=== PATIENT | male | born 1950 | race Caucasian/White ===

== ENCOUNTER → 2017-11-27 08:54 | Outpatient (CLI) | payer MEDICARE, OTHER, SELFPAY ==
[2017-11-27 10:56] LABS: Anion Gap 7 (5-15); BUN 14 mg/dL (7-18); BUN/Creat Ratio 11.8 RATIO (10-20); Calcium,Total 8.8 mg/dL (8.5-10.1); Chloride 106 mmol/L (98-107); Cholesterol 174 mg/dL (200); Creatinine, Serum 1.19 mg/dL (0.70-1.30); EST Glomerular Filtration Rate 65 mL/min (>60); Est Glom Filt Rate - Afr Amer 78 mL/min (>60); Glucose 99 mg/dL (74-106); High Density Lipoprotein 58 mg/dL; Potassium 4.5 mmol/L (3.5-5.1); Sodium Level 143 mmol/L (136-145); Triglycerides 159 mg/dL; Very Low Density Lipoprotein 32 mg/dL (5-40)
[2017-11-28 08:35] LABS: Vitamin D,25 Hydroxy 46.8 ng/mL (29.95-100.01)
== END ==
PROVIDERS: Family Provider Family Medicine; PCP Family Medicine; Visit Provider Family Medicine
DX: E78.5 Hyperlipidemia, unspecified (principal); R53.83 Other fatigue; E55.9 Vitamin D deficiency, unspecified
CPT/HCPCS: 36415; 80048; 80061; 82306

== ENCOUNTER → 2018-12-12 09:01 | Outpatient (CLI) | payer MEDICARE, OTHER, SELFPAY ==
[2018-12-12 11:06] LABS: ALB/GLOB Ratio 1.1 RATIO (0.9-2.4); AST(SGOT) 34 U/L (15-37); Alanine Aminotransfer ALT/SGPT 53 U/L (16-61); Albumin, Serum 3.6 g/dL (3.2-5.0); Alkaline Phosphatase 59 U/L (45-117); Anion Gap 6 (5-15); BUN 16 mg/dL (7-18); BUN/Creat Ratio 14.3 RATIO (10-20); Calcium,Total 8.6 mg/dL (8.5-10.1); Chloride 108 mmol/L (98-107); Cholesterol 162 mg/dL (200); Creatinine, Serum 1.12 mg/dL (0.70-1.30); EST Glomerular Filtration Rate 69 mL/min (>60); Est Glom Filt Rate - Afr Amer 84 mL/min (>60); Globulin 3.3 g/dL (2.2-4.2); Glucose 99 mg/dL (74-106); High Density Lipoprotein 57 mg/dL; PSA,Total - Annual Screen 0.82 ng/mL (0.00-4.00); Potassium 4.1 mmol/L (3.5-5.1); Protein, Total 6.9 g/dL (6.4-8.2); Sodium Level 142 mmol/L (136-145); Triglycerides 110 mg/dL; Very Low Density Lipoprotein 22 mg/dL (5-40)
== END ==
PROVIDERS: Family Provider Family Medicine; PCP Family Medicine; Referring Provider Family Medicine; Visit Provider Family Medicine
DX: E78.5 Hyperlipidemia, unspecified (principal); R53.83 Other fatigue; E55.9 Vitamin D deficiency, unspecified; Z12.5 Encounter for screening for malignant neoplasm of prostate
CPT/HCPCS: 36415; 80053; 80061; 82306; 84153; G0103

== ENCOUNTER → 2020-05-26 12:21 | Outpatient (CLI) | payer MEDICARE, OTHER, SELFPAY ==
[2020-05-26 15:38] LABS: Vitamin D,25 Hydroxy 81.3 ng/mL
[2020-05-26 15:39] LABS: Anion Gap 6 (5-15); BUN 12 mg/dL (7-18); BUN/Creat Ratio 9.6 RATIO (10-20); Calcium,Total 8.7 mg/dL (8.5-10.1); Chloride 106 mmol/L (98-107); Cholesterol 173 mg/dL (200); Creatinine, Serum 1.25 mg/dL (0.70-1.30); EST Glomerular Filtration Rate 61 mL/min (>60); Est Glom Filt Rate - Afr Amer 74 mL/min (>60); Glucose 94 mg/dL (74-106); High Density Lipoprotein 63 mg/dL; PSA,Total - Annual Screen 0.54 ng/mL (0.00-4.00); Potassium 3.8 mmol/L (3.5-5.1); Sodium Level 140 mmol/L (136-145); Triglycerides 114 mg/dL; Very Low Density Lipoprotein 23 mg/dL (5-40)
== END ==
PROVIDERS: PCP Family Medicine; Referring Provider Family Medicine; Visit Provider Family Medicine
DX: E55.9 Vitamin D deficiency, unspecified (principal); E78.5 Hyperlipidemia, unspecified; Z12.5 Encounter for screening for malignant neoplasm of prostate; Z13.1 Encounter for screening for diabetes mellitus
CPT/HCPCS: 36415; 80048; 80061; 82306; 84153; G0103

== ENCOUNTER 2020-07-06 13:12 | Outpatient (RCR) | payer MEDICARE, OTHER, SELFPAY ==
[2020-07-06] MEDS: COVID-19 VACC, MRNA(PFIZER)/PF 30 MCG/0.3 ML SYRINGE IM (12:09)
[2020-07-27] MEDS: COVID-19 VACC, MRNA(PFIZER)/PF 30 MCG/0.3 ML SYRINGE IM (11:49)
== END 2020-10-05 23:59 ==
LOC: IMMUN 13:12
PROVIDERS: PCP Family Medicine; Visit Provider Family Medicine
DX: Z23 Encounter for immunization (principal)
CPT/HCPCS: 0001A; 0002A; 91300

== ENCOUNTER 2021-05-10 16:46 | Outpatient (CLI) | payer MEDICARE, OTHER, SELFPAY ==
--- NOTE | 2021-05-10 16:51 | RAD_ITS ---
STUDY: X-RAY - ACUTE ABDOMINAL SERIES REASON FOR EXAM: Male, 70 years old. Pain. Right upper quadrant pain. TECHNIQUE: Single view of the chest. Supine, and erect view(s) of the abdomen were obtained. COMPARISON: CT of the abdomen and pelvis, 05/31/2016. Chest, 01/16/2014 FINDINGS: The lungs are clear and expanded. Normal size heart. Normal mediastinum and olegario. Normal visualized pulmonary arteries. Normal visualized aortic arch and descending thoracic aorta. There is a non-specific bowel gas pattern. No free air. The soft tissue structures of the abdomen and pelvis are unremarkable. Degenerative changes of the thoracolumbar spine. There is a healed fracture of the right clavicle. RAD/Acute Abdomen Inc Chest IMPRESSION: 1. No acute cardiopulmonary disease. 2. No acute intra-abdominal process. Electronically Signed: Quentin Chang DO at 21:18 EST Tel [phone], Service support ,
[2021-05-10 18:10] LABS: Absolute Neutrophil Count 2.4 X10^3/uL (2.0-7.7); Basophil# 0.03 X10^3/uL; Basophil% 0.7 % (0-1); Eosinophil# 0.12 X10^3/uL; Eosinophils% 2.7 % (0-5); Hematocrit 42.2 % (40-54); Hemoglobin 14.1 g/dL (13.0-16.5); Lymphocyte % 33.7 % (19-41); Mean Corp Hgb Conc 33.4 g/dL (32-36); Mean Corpuscular Hgb 31.5 pg (27.0-32.0); Mean Corpuscular Volume 94.2 fL (80-94); Mean Platelet Vol. 10.6 fl (6.2-12.0); Monocyte# 0.35 X10^3/uL; Monocyte% 7.9 % (0-10); NRBC Flagged by Analyzer 0 % (0-5); Neutrophil # 2.44 X10^3/uL (2.7-7.7); Neutrophil % 54.8 % (47-70); Platelet Count 159 K/mm3 (150-450); RBC Distribution Width CV 12.8 % (11.6-14.6); RBC Distribution Width SD 43.8 fl (35.1-43.9); Red Blood Count 4.48 M/mm3 (4.6-6.2); White Blood Count 4.5 K/mm3 (4.4-11.0)
[2021-05-10 18:12] LABS: ALB/GLOB Ratio 1.2 RATIO (0.9-2.4); AST(SGOT) 28 U/L (15-37); Alanine Aminotransfer ALT/SGPT 53 U/L (16-61); Albumin, Serum 3.8 g/dL (3.2-5.0); Alkaline Phosphatase 72 U/L (45-117); Anion Gap 7 (5-15); BUN 19 mg/dL (7-18); BUN/Creat Ratio 15.4 RATIO (10-20); Chloride 103 mmol/L (98-107); Creatinine, Serum 1.23 mg/dL (0.70-1.30); EST Glomerular Filtration Rate 62 mL/min (>60); Est Glom Filt Rate - Afr Amer 75 mL/min (>60); Globulin 3.3 g/dL (2.2-4.2); Glucose 105 mg/dL (74-106); Potassium 3.9 mmol/L (3.5-5.1); Protein, Total 7.1 g/dL (6.4-8.2); Sodium Level 140 mmol/L (136-145)
[2021-05-10 18:35] LABS: Erythrocyte Sedimentation Rate 5 mm/hr (0-20)
== END 2021-05-10 23:59 | disposition short-term general hospital (02) ==
PROVIDERS: PCP Family Medicine; Referring Provider Family Medicine; Visit Provider Family Medicine
DX: R10.9 Unspecified abdominal pain (principal)
CPT/HCPCS: 36415; 74022; 80053; 85025; 85652

== ENCOUNTER 2021-06-28 11:07 | Outpatient (CLI) | payer MEDICARE, OTHER, SELFPAY ==
[2021-06-28 12:59] LABS: Vitamin B12 451 pg/mL (211-911); Vitamin D,25 Hydroxy 84.4 ng/mL
[2021-06-28 13:07] LABS: Cholesterol 158 mg/dL (200); High Density Lipoprotein 64 mg/dL; Thyroid Stim Hormone (TSH) 1.61 uIU/mL (0.358-3.74); Triglycerides 126 mg/dL; Very Low Density Lipoprotein 25 mg/dL (5-40)
== END 2021-06-28 23:59 | disposition home or self-care (01) ==
LOC: MTLAB 11:11
PROVIDERS: PCP Family Medicine; Referring Provider Family Medicine; Visit Provider Family Medicine
DX: E78.5 Hyperlipidemia, unspecified (principal); E55.9 Vitamin D deficiency, unspecified; R53.83 Other fatigue; Z12.5 Encounter for screening for malignant neoplasm of prostate
CPT/HCPCS: 36415; 80061; 82306; 82607; 84153; 84443; G0103

== ENCOUNTER → 2022-07-04 | Outpatient (CLI) | payer MEDICARE, OTHER, SELFPAY ==
[2022-07-04 13:03] LABS: Vitamin D,25 Hydroxy 80.8 ng/mL
[2022-07-04 13:06] LABS: ALB/GLOB Ratio 1.2 RATIO (0.9-2.4); AST(SGOT) 30 U/L (15-37); Alanine Aminotransfer ALT/SGPT 49 U/L (16-61); Albumin, Serum 3.8 g/dL (3.2-5.0); Alkaline Phosphatase 58 U/L (45-117); Anion Gap 6 (5-15); BUN 12 mg/dL (7-18); BUN/Creat Ratio 9.7 RATIO (10-20); Calcium,Total 9.2 mg/dL (8.5-10.1); Chloride 106 mmol/L (98-107); Cholesterol 187 mg/dL (200); Creatinine, Serum 1.24 mg/dL (0.70-1.30); EST Glomerular Filtration Rate 61 mL/min (>60); Est Glom Filt Rate - Afr Amer 74 mL/min (>60); Globulin 3.3 g/dL (2.2-4.2); Glucose 106 mg/dL (74-106); High Density Lipoprotein 62 mg/dL; PSA,Total - Annual Screen 0.79 ng/mL (0.00-4.00); Potassium 4.5 mmol/L (3.5-5.1); Protein, Total 7.1 g/dL (6.4-8.2); Sodium Level 140 mmol/L (136-145); Triglycerides 115 mg/dL; Very Low Density Lipoprotein 23 mg/dL (5-40)
== END | disposition home or self-care (01) ==
LOC: MFPLAB 10:22
PROVIDERS: PCP Family Medicine; Referring Provider Family Medicine; Visit Provider Family Medicine
DX: E78.5 Hyperlipidemia, unspecified (principal); E55.9 Vitamin D deficiency, unspecified; Z12.5 Encounter for screening for malignant neoplasm of prostate
CPT/HCPCS: 36415; 80053; 80061; 82306; 84153; G0103

== ENCOUNTER → 2023-04-03 | Outpatient (CLI) | payer MEDICARE, OTHER, SELFPAY ==
[2023-04-03 10:31] LABS: Erythrocyte Sedimentation Rate 4 mm/hr (0-20)
[2023-04-03 10:34] LABS: Basophil# 0.04 X10^3/uL; Basophil% 1.1 % (0-1); Eosinophil# 0.16 X10^3/uL; Eosinophils% 4.3 % (0-5); Hematocrit 42.3 % (40-54); Lymphocyte % 31.9 % (19-41); Mean Corp Hgb Conc 33.1 g/dL (32-36); Mean Corpuscular Hgb 31.5 pg (27.0-32.0); Mean Corpuscular Volume 95.1 fL (80-94); Mean Platelet Vol. 11.1 fl (6.2-12.0); Monocyte# 0.32 X10^3/uL; Monocyte% 8.5 % (0-10); NRBC Flagged by Analyzer 0 % (0-5); Neutrophil # 2.03 X10^3/uL (2.7-7.7); Neutrophil % 53.9 % (47-70); Platelet Count 141 K/mm3 (150-450); RBC Distribution Width CV 13.1 % (11.6-14.6); RBC Distribution Width SD 45.1 fl (35.1-43.9); Red Blood Count 4.45 M/mm3 (4.6-6.2); White Blood Count 3.8 K/mm3 (4.4-11.0)
[2023-04-03 11:08] LABS: Vitamin B12 404 pg/mL (211-911); Vitamin D,25 Hydroxy 87.7 ng/mL
[2023-04-03 11:18] LABS: ALB/GLOB Ratio 1.1 RATIO (0.9-2.4); AST(SGOT) 21 U/L (15-37); Alanine Aminotransfer ALT/SGPT 44 U/L (16-61); Albumin, Serum 3.7 g/dL (3.2-5.0); Alkaline Phosphatase 66 U/L (45-117); Anion Gap 3 (5-15); BUN 18 mg/dL (7-18); BUN/Creat Ratio 16.2 RATIO (10-20); Calcium,Total 8.5 mg/dL (8.5-10.1); Chloride 107 mmol/L (98-107); Creatinine, Serum 1.11 mg/dL (0.70-1.30); EST Glomerular Filtration Rate 69 mL/min (>60); Est Glom Filt Rate - Afr Amer 84 mL/min (>60); Ferritin 68 ng/mL (26-388); Globulin 3.3 g/dL (2.2-4.2); Glucose 108 mg/dL (74-106); Iron 79 ug/dL (65-175); Potassium 4.1 mmol/L (3.5-5.1); Sodium Level 139 mmol/L (136-145); Thyroid Stim Hormone (TSH) 1.63 uIU/mL (0.358-3.74)
== END | disposition home or self-care (01) ==
LOC: MFPLAB 08:58
PROVIDERS: PCP Family Medicine; Visit Provider Family Medicine
DX: G47.50 Parasomnia, unspecified (principal); E78.5 Hyperlipidemia, unspecified; E55.9 Vitamin D deficiency, unspecified
CPT/HCPCS: 36415; 80053; 82306; 82607; 82728; 83540; 84443; 85025; 85652

== ENCOUNTER → 2024-01-31 | Outpatient (CLI) | payer MEDICARE, OTHER, SELFPAY ==
[2024-01-31 13:12] LABS: AST(SGOT) 25 U/L (15-37); Alanine Aminotransfer ALT/SGPT 31 U/L (16-61); Albumin, Serum 3.7 g/dL (3.2-5.0); Alkaline Phosphatase 79 U/L (45-117); Anion Gap 5 (5-15); BUN 15 mg/dL (7-18); BUN/Creat Ratio 12.8 RATIO (10-20); Calcium,Total 9.6 mg/dL (8.5-10.1); Chloride 107 mmol/L (98-107); Cholesterol 165 mg/dL (200); Creatinine, Serum 1.17 mg/dL (0.70-1.30); EST Glomerular Filtration Rate 65 mL/min (>60); Est Glom Filt Rate - Afr Amer 79 mL/min (>60); Globulin 3.6 g/dL (2.2-4.2); Glucose 112 mg/dL (74-106); High Density Lipoprotein 63 mg/dL; PSA,Total - Annual Screen 0.81 ng/mL (0.00-4.00); Protein, Total 7.3 g/dL (6.4-8.2); Sodium Level 140 mmol/L (136-145); Triglycerides 94 mg/dL; Very Low Density Lipoprotein 19 mg/dL (5-40)
== END | disposition home or self-care (01) ==
LOC: MFPLAB 11:02
PROVIDERS: PCP Family Medicine; Referring Provider Family Medicine; Visit Provider Family Medicine
DX: E78.5 Hyperlipidemia, unspecified (principal); E55.9 Vitamin D deficiency, unspecified; Z12.5 Encounter for screening for malignant neoplasm of prostate
CPT/HCPCS: 36415; 80053; 80061; 82306; 84153; G0103

== ENCOUNTER → 2024-09-02 | Outpatient (CLI) | payer MEDICARE, OTHER, SELFPAY ==
[2024-09-02 15:51] LABS: Absolute Neutrophil Count 1.9 X10^3/uL (2.0-7.7); Basophil# 0.01 X10^3/uL; Basophil% 0.4 % (0-1); Eosinophil# 0.02 X10^3/uL; Eosinophils% 0.8 % (0-5); Hematocrit 41.2 % (40-54); Hemoglobin 14.1 g/dL (13.0-16.5); Lymphocyte % 15.3 % (19-41); Mean Corp Hgb Conc 34.2 g/dL (32-36); Mean Corpuscular Hgb 31.5 pg (27.0-32.0); Mean Corpuscular Volume 92.2 fL (80-94); Mean Platelet Vol. 10.7 fl (6.2-12.0); Monocyte# 0.23 X10^3/uL; Monocyte% 8.8 % (0-10); NRBC Flagged by Analyzer 0 % (0-5); Neutrophil # 1.94 X10^3/uL (2.7-7.7); Neutrophil % 74.3 % (47-70); POSITIVE DIFFERENTIAL YES; Platelet Count 101 K/mm3 (150-450); RBC Distribution Width CV 13.2 % (11.6-14.6); RBC Distribution Width SD 44.8 fl (35.1-43.9); Red Blood Count 4.47 M/mm3 (4.6-6.2); White Blood Count 2.6 K/mm3 (4.4-11.0)
[2024-09-02 15:55] LABS: ALB/GLOB Ratio 1.3 RATIO (0.9-2.4); AST(SGOT) 102 U/L (<=37); Alanine Aminotransfer ALT/SGPT 108 U/L (<=46); Albumin, Serum 3.9 g/dL (3.4-4.8); Alkaline Phosphatase 142 U/L (40-129); Anion Gap 13 (5-15); BUN 15 mg/dL (4-19); BUN/Creat Ratio 10.2 RATIO (10-20); Calcium,Total 9.3 mg/dL (7.6-11.0); Carbon Dioxide 23.5 mmol/L (21.0-32.0); Chloride 98 mmol/L (98-108); Creatinine, Serum 1.46 mg/dL (0.70-1.20); EST Glomerular Filtration Rate 50 (>60); Globulin 3.1 g/dL (2.2-4.2); Glucose 108 mg/dL (70-99); Potassium 4.2 mmol/L (3.3-5.1); Sodium Level 134 mmol/L (133-145); Total Bilirubin 0.98 mg/dL (0.00-1.30)
[2024-09-02 16:02] LABS: Differential Indicated SCAN CRITERIA MET
[2024-09-02 17:50] LABS: Erythrocyte Sedimentation Rate 8 mm/hr (0-20)
[2024-09-04 05:07] LABS: GGTP 84 IU/L (0-65)
== END | disposition home or self-care (01) ==
LOC: MFPLAB 12:19
PROVIDERS: PCP Family Medicine; Referring Provider Family Medicine; Visit Provider Family Medicine
DX: R05.9 Cough, unspecified (principal); R10.9 Unspecified abdominal pain
CPT/HCPCS: 36415; 80053; 82977; 85025; 85652; 87086; 87088

== ENCOUNTER → 2024-09-04 | Outpatient (CLI) | payer MEDICARE, OTHER, SELFPAY ==
--- NOTE | 2024-09-04 07:13 | US_ITS ---
PROCEDURE: ABDOMEN LIMITED 09/04/2024 REASON FOR EXAM: ELEVATED LFT COMPARISON: None. FINDINGS: Liver: Within normal limits. Gallbladder: Surgically absent. Common bile duct: 7 mm . Pancreas: Visualized portions appear within normal limits. The pancreatic tail is obscured by bowel gas. Other: The right kidney is without evidence of stones or hydronephrosis. The right kidney measures up to 10.6 cm in length. US/Abdomen Limited IMPRESSION: Status post cholecystectomy. Liver appears unremarkable. Reading Location: [facility]
== END | disposition home or self-care (01) ==
LOC: US 07:10
PROVIDERS: PCP Family Medicine; Referring Provider Family Medicine; Visit Provider Family Medicine
DX: R94.5 Abnormal results of liver function studies (principal); R10.9 Unspecified abdominal pain
CPT/HCPCS: 76705

== ENCOUNTER 2024-09-06 21:43 | Emergency (ER) | payer MEDICARE, OTHER, SELFPAY ==
[2024-09-06 21:44] VITALS: BP 131/79; PULSE 87; RESP 18; TEMP 37.3; O2SAT 98; BMI 25.0
--- NOTE | 2024-09-06 22:32 | EDS_ITS ---
HPI History of Present Illness Chief Complaint: General Illness Informant: patient Narrative Narrative: Patient 73-year-old male presenting with 9 days of intermittent fevers, night sweats, chills, rigors, swollen glands, sore throat, fatigue and, decreased appetite and rash. He saw his primary care doctor on Sunday, 4 days ago and had blood work. He had an ultrasound of his abdomen for elevated LFTs. This was normal. He continues have symptoms and came in for evaluation. He is having a worsening rash now. He states it started as a rash on his neck and upper chest that he thought initially maybe he got sunburn from working outside. It has since enlarged and he is now having other rashes popping up on his abdomen, arms or legs. He denies any nausea, vomiting or diarrhea. Denies any black or blood in his stool. States he has a mild headache but has not thought too much of it. Took 2 aspirin today. Denies any medication changes. Denies any supplements or soaps. Denies any sick contacts. Denies any URI symptoms besides sore throat and a swollen lymph node on the right of his neck when this first started. Denies any known tick bites but notes he does spend a lot of time outside. States he has some chronic abdominal pain for years with no significant change in this. Denies any significant cough. No chest pain or shortness of breath reported. No leg swelling reported. Never had any like this before. No other complaints or concerns at this time. [facility] Medical History Depression FH: cholecystectomy High cholesterol Medical History no medical history Home Medications ?Medication ?Instructions ?Recorded ?Last Taken ?Type atorvastatin 20 mg tablet 20 mg PO DAILY 09/06/24 Unkn own History bupropion HCl 150 mg 24 hr tablet, 150 mg PO DAILY 02/21 Unknown History extended release escitalopram oxalate 20 mg tablet 20 mg PO DAILY 09/06 Unknown History fluorometholone 0.1 % eye 1 drp ophthalmic (eye) BID 0 09/06/24 Unknown History drops,suspension cefuroxime axetil 500 mg tablet 500 mg PO BID 14 days #28 tabs 09/07/24 Unknown Rx famotidine 20 mg tablet (Pepcid) 20 mg PO BID #30 tabs 09/07/24 Unknown Rx metronidazole 500 mg tablet 500 mg PO Q8H 7 days #21 t abs 09/07/24 Unknown Rx Allergy/AdvReac Type Severity Reaction Status Date / Time scallops Allergy Angioedema Verified 09/06/24 21:46 Surgical History no surgical history Social History Smoking Status: Never smoker ROS ROS ED Constitutional Constitutional ED: Reports chills, fever(s), sweats and other Details: Anorexia Eyes Eyes: Denies change in vision ENT ENT ED: Reports sore throat; Denies ear pain or rhinorrhea Cardiovascular Cardiovascular: Denies chest pain or palpitations Respiratory/Chest Respiratory/Chest: Denies cough or dyspnea Gastrointestinal Gastrointestinal: Reports abdominal pain; Denies diarrhea, melena, nausea or vomiting Genitourinary Genitourinary ED: Denies dysuria, hematuria or urinary frequency Musculoskeletal Musculoskeletal: Reports arthralgias; Denies back pain, myalgias or neck pain Integumentary Reports rash Neurologic Neurologic: Reports headache(s); Denies paresthesias or weakness Psychiatric Psychiatric: Denies anxiety Endocrine Endocrinology: Reports other Details: Night sweats Hematologic/Lymphatic Hematologic/Lymphatic: Denies easy bleeding or easy bruising EXAM Physical Exam Const Vital Signs: 09/06/24 21:44 09/06/24 22:13 09/06/24 23:43 Temperature 99.1 F 99.2 F H Temperature Source Oral Oral Pulse Rate 87 77 Respiratory Rate 18 16 Respiratory Pattern Normal Blood Pressure 131/79 H 120/76 Blood Pressure Mean 96 90 Pulse Ox 98 97 Oxygen Delivery Method Room Air Room Air 09/07/24 00:41 09/07/24 02:11 Temperature 98.4 F Temperature Source Pulse Rate 79 81 Respiratory Rate 16 16 Respiratory Pattern Blood Pressure 122/68 H 114/76 Blood Pressure Mean 86 88 Pulse Ox 97 97 Oxygen Delivery Method Room Air Positive well nourished and well developed General Appearance ED: well developed and NAD; Negative for pallor HEENT Reports moist mucous membranes HEENT Narrative: No lesions noted in the mouth. Moist mucosal membranes. Eyes PERRL and EOMs intact bilaterally Neck supple and no JVD Neck Narrative: Mild tender shotty lymphadenopathy most pronounced of the right anterior superior cervical chain. Normal range of motion of the neck. No meningeal signs. Chest Wall palpation of chest normal Chest Narrative: No chest wall tenderness. Resp normal respiratory effort and clear to auscultation bilaterally Cardio regular rate, regular rhythm and no murmurs GI normal to inspection, nondistended, normoactive bowel sounds and non-tender Auscultation: normoactive bowel sounds Palpation: soft; Negative for tender or guarding Back/Spine no CVA tenderness Extremity normal to inspection General Extremety ED: Negative for edema or tenderness General Extremity: Negative for edema Neuro oriented x3 and no sensory deficits noted Sensorium / Orientation: alert Motor Exam: strength 5/5 throughout; Negative for general weakness Psych mental status grossly normal Skin Skin Narrative: Patient has erythematous rash with relatively well-demarcated borders of the anterior neck as well as the anterior chest wall that also psych an exaggerated outline of the edge of his shirt. He then has large scattered ovoid erythematous rash on his abdomen and scattered but less pronounced on his arms and legs. There is some mild clearing of these lesions with a central area of increased erythema again. Most consistent with erythema migrans. General Skin Exam: Negative for jaundice or pallor MDM MDM MDM Narrative Medical decision making narrative: Patient is evaluated for 9 days of fever, night sweats, chills, decreased appetite and rash. Has also had ongoing abdominal pain and recent labs did show a transaminitis. Symptoms started with a sore throat. Differential is broad including paraneoplastic syndrome, occult infection, bacteremia, UTI, Lyme disease, ascending cholangitis, choledocholithiasis, viral syndrome, dermatitis and autoimmune process. Broad workup including CBC, BMP, liver panel, CRP, ESR, TSH, lipase and urinalysis as well as strep swab, Monospot and Lyme screen (send out) ordered. Edition chest x-ray is obtained. Chest x-ray viewed by myself as well as radiology does not show any acute process. Workup is remarkable for elevation of his CRP at 121 and a mild anemia with a hemoglobin of 12.9 which is down about a gram compared to a week ago. Denies any active bleeding. There is now a left shift but white blood cell count is normal. It is elevated from where it was a week ago (from 2.6-5.8). ESR is normal. Is normal BUN and creatinine with largely normal electrolytes. Patient does have an uptrending transaminitis but is still mild. Bilirubin total is normal. TSH is normal. Urinalysis largely normal. Monospot is negative. Strep swab is negative. Given the abdominal pain with uptrending transaminitis and fever of unknown origin CT of the abdomen pelvis is ordered. This does show findings consistent with probable colitis most prominent in the hepatic flexure. No acute diverticulitis. There is some findings consistent with gastritis. This is not explain the patient's rash however. Patient will be started on metronidazole and cefuroxime which will cover intra-abdominal pathology/colitis as well as Lyme disease. Is given first dose of the emergency room. Will also prescribe a PPI for the gastritis noted on CT. Is given outpatient GI follow-up as well as follow-up with primary care doctor. Given close return precautions. Blood cultures are pending. Discharged home in stable condition. Patient is largely well-appearing and actually afebrile without any intervention at time of disposition. Lab Data Attestation: I reviewed the patient's lab results. Labs: Laboratory Results - last 24 hr 09/06/24 09/06/24 23:16 23:30 WBC 5.8 RBC 4.12 L Hgb 12.9 L Hct 37.6 L MCV 91.3 MCH 31.3 MCHC 34.3 RDW Std Deviation 44.2 H RDW Coeff of Carine 13.1 Plt Count 181 MPV 9.9 Immature Gran % (Auto) 1.200 H Neut % (Auto) 82.0 H Lymph % (Auto) 9.5 L Ocean % (Auto) 5.4 Eos % (Auto) 1.6 Baso % (Auto) 0.3 Absolute Neuts (auto) 4.7 Absolute Lymphs (auto) 0.55 L Nucleated RBC % 0 ESR 11 Sodium 134 Potassium 3.7 Chloride 97 L Carbon Dioxide 24.6 Anion Gap 12 BUN 16 Creatinine 1.17 Estim Creat Clear Calc 54.40 Est GFR (MDRD) Non-Af 66 BUN/Creatinine Ratio 13.3 Glucose 113 H Calcium 9.0 Total Bilirubin 0.73 Direct Bilirubin 0.37 H AST 96 H ALT 132 H Alkaline Phosphatase 264 H C-React Prot Ext Range 121.00 H Total Protein 7.3 Albumin 3.9 Globulin 3.4 Lipase 33 TSH 2.540 Urine Color Yellow Urine Clarity Clear Urine pH 6.0 Ur Specific [place] 1.015 Urine Protein 30 H Urine Glucose (UA) Normal Urine Ketones Negative Urine Occult Blood 50 H Urine Nitrite Negative Urine Bilirubin Negative Urine Urobilinogen 1 H Ur Leukocyte Esterase Negative Urine RBC 0 SEEN Urine WBC 0 SEEN Ur Squamous Epith Cells 0 SEEN Urine Bacteria 1+ Hyaline Casts 0-5 SEEN Urine Mucus 2+ Monoscreen Negative Radiography Diagnostic Testing: Clinical Impression(s) from Imaging Studies Chest X-Ray 09/06/24 23:39 IMPRESSION: NO ACUTE FINDINGS. Reading Location: [facility] Abdomen/Pelvis CT 09/07/24 01:07 IMPRESSION: 1. Prior cholecystectomy. 2. Mild multifocal thickening of the colon, more prominent in the hepatic flexure, probably colitis. 3. Diffuse colonic diverticulosis without associated acute diverticulitis. 4. Diffuse thickening of the stomach, probably gastritis. 5. Mild diffuse spondylosis. Reading Location: [place] [address] Discharge Plan Triage Chief Complaint: General Illness ED Provider: Ronda Sheikh Dx/Rx/DC Orders Clinical Impression: Colitis, Erythema migrans (Lyme disease), Fever Instructions: ED Understanding Colitis, ED Lyme Disease Prescriptions: New metronidazole 500 mg tablet 500 mg PO Q8H 7 Days Qty: 21 0RF cefuroxime axetil 500 mg tablet 500 mg PO BID 14 Days Qty: 28 0RF famotidine [Pepcid] 20 mg tablet 20 mg PO BID Qty: 30 0RF No Action atorvastatin 20 mg tablet 20 mg PO DAILY fluorometholone 0.1 % drops,suspension 1 drp ophthalmic (eye) BID escitalopram oxalate 20 mg tablet 20 mg PO DAILY bupropion HCl 150 mg tablet extended release 24 hr 150 mg PO DAILY Primary Care Provider: Jose Carlos Hong Referrals: Jose Carlos Hong MD [Primary Care Provider] - Friend,DO Rodolfo [Med Staff - Active Staff] - Activity Restrictions/Additional Instructions: The ringlike rash scattered throughout your body is highly concerning for Lyme disease. You been started on antibiotic for this while your titers are pending. In addition your CT did show findings showing for possible colitis as well as some inflammation of the stomach. You been prescribed antibiotics to treat the colitis as well and an antacid. Please follow-up with GI. If you have worsening symptoms, develop worsening pain, blood in your stool or severe fever please return to the emergency room. Otherwise please continue to follow-up outpatient with your primary care doctor. Print Language: Tamazight
[2024-09-06 23:34] LABS: Red Blood Cells-Urine 0 SEEN /hpf (0-5); Squamous Epithelial Cells - UA 0 SEEN /hpf (0-5); White Blood Cells 0 SEEN /hpf (0-5)
--- NOTE | 2024-09-06 23:39 | RAD_ITS ---
PROCEDURE: CHEST PA AND LATERAL 09/06/2024 REASON FOR EXAM: FEVER TECHNIQUE: Frontal and lateral views of the chest. COMPARISON: 05/10/2021 FINDINGS: Hardware: None Heart: The heart size is normal. Mediastinum: The mediastinal contour is unremarkable. Lungs: No focal consolidation. No pneumothorax. No pleural effusion. Mild bibasilar atelectasis Bones: The bones are unremarkable. RAD/Chest PA and Lateral IMPRESSION: NO ACUTE FINDINGS. Reading [facility]
[2024-09-06 23:43] VITALS: BP 120/76; PULSE 77; RESP 16; TEMP 37.3; O2SAT 97
[2024-09-06 23:52] LABS: Color, Urine Yellow (Yellow); Glucose, Dipstick Normal (Normal); Ketone-Dipstick Negative (Negative); Leukocyte Esterase-Dipstick Negative /ul (Negative); Nitrite-Dipstick Negative (Negative); Occult Blood-Urine 50 /ul (Negative); Protein-Dipstick 30 mg/dl (Negative); Specific Gravity, Urine 1.015 (1.002-1.030); Urine Bilirubin Dipstick Negative (Negative); Urine Clarity Clear (Clear); Urine Urobilinogen 1 mg/dl (Normal)
[2024-09-07 00:07] LABS: Absolute Lymphocyte Count 0.55 X10^3/uL (0.83-4.51); Absolute Neutrophil Count 4.7 X10^3/uL (2.0-7.7); Basophil# 0.02 X10^3/uL; Basophil% 0.3 % (0-1); Eosinophil# 0.09 X10^3/uL; Eosinophils% 1.6 % (0-5); Hematocrit 37.6 % (40-54); Hemoglobin 12.9 g/dL (13.0-16.5); Lymphocyte # 0.55 X10^3/ul (0.83-4.51); Lymphocyte % 9.5 % (19-41); Mean Corp Hgb Conc 34.3 g/dL (32-36); Mean Corpuscular Hgb 31.3 pg (27.0-32.0); Mean Corpuscular Volume 91.3 fL (80-94); Mean Platelet Vol. 9.9 fl (6.2-12.0); Monocyte# 0.31 X10^3/uL; Monocyte% 5.4 % (0-10); NRBC Flagged by Analyzer 0 % (0-5); Neutrophil # 4.74 X10^3/uL (2.7-7.7); POSITIVE DIFFERENTIAL YES; Platelet Count 181 K/mm3 (150-450); RBC Distribution Width CV 13.1 % (11.6-14.6); RBC Distribution Width SD 44.2 fl (35.1-43.9); Red Blood Count 4.12 M/mm3 (4.6-6.2); White Blood Count 5.8 K/mm3 (4.4-11.0)
[2024-09-07 00:09] LABS: Erythrocyte Sedimentation Rate 11 mm/hr (0-20)
[2024-09-07 00:14] LABS: AST(SGOT) 96 U/L (<=37); Alanine Aminotransfer ALT/SGPT 132 U/L (<=46); Albumin, Serum 3.9 g/dL (3.4-4.8); Alkaline Phosphatase 264 U/L (40-129); Anion Gap 12 (5-15); BUN 16 mg/dL (4-19); BUN/Creat Ratio 13.3 RATIO (10-20); Bilirubin, Direct 0.37 mg/dL (0.00-0.30); Carbon Dioxide 24.6 mmol/L (21.0-32.0); Chloride 97 mmol/L (98-108); Creatinine, Serum 1.17 mg/dL (0.70-1.20); EST Glomerular Filtration Rate 66 (>60); Globulin 3.4 g/dL (2.2-4.2); Glucose 113 mg/dL (70-99); Lipase 33 U/L (13-75); Potassium 3.7 mmol/L (3.3-5.1); Protein, Total 7.3 g/dL (5.9-8.4); Sodium Level 134 mmol/L (133-145); Total Bilirubin 0.73 mg/dL (0.00-1.30)
[2024-09-07 00:22] LABS: Bacteria 1+ /hpf (None Seen); Hyaline Cast 0-5 SEEN /lpf (0-5); Mucous, Urine 2+ /hpf (<or=2+)
[2024-09-07 00:22] LABS: Internal QC Validated? YES +Cl - CLEAR BKGD; Monotest Negative (Negative); Record Kit Lot#, Mono 13241430
[2024-09-07 00:41] VITALS: BP 122/68; PULSE 79; RESP 16; O2SAT 97
--- NOTE | 2024-09-07 01:07 | CT_ITS ---
PROCEDURE: ABDOMEN/PELVIS W IV CONT ONLY 09/07/2024 REASON FOR EXAM: ABD PAIN, FEVER, TRANSAMINITIS TECHNIQUE: Abdomen and pelvis CT with intravenous contrast. Coronal and Sagittal reconstruction series were provided. PATIENT PREPARATION: Per protocol ORAL CONTRAST TYPE: None. CONTRAST: [id number] VOLUME: 100 mL One or more dose reduction techniques were used (e.g., Automated exposure control, adjustment of the mA and/or kV according to patient size, use of iterative reconstruction technique. RADIATION DOSE SUMMARY: CTDlvol: 11.29 mGy DLP: 582 mGycm COMPARISON: Ultrasound of the abdomen on 09/04/2024. FINDINGS: Prior cholecystectomy. Mild multifocal thickening of the colon, more prominent in the hepatic flexure, probably colitis. Diffuse colonic diverticulosis without associated acute diverticulitis. Diffuse thickening of the stomach, probably gastritis. Mild diffuse spondylosis. The visualized lung bases are unremarkable. Normal liver. Normal extrahepatic biliary system. Normal spleen. Normal pancreas. Normal bilateral adrenal glands. Normal size of the right kidney. There is no right renal mass. There are no right renal calculi. There is no right hydronephrosis. Normal visualized right ureter. Normal size of the left kidney. There is no left renal mass. There are no left renal calculi. There is no left hydronephrosis. Normal visualized left ureter. Normal small intestine. The appendix is visualized and appears normal. There is no demonstrated peritoneal fluid. Normal abdominal aorta. Normal inferior vena cava. Normal retroperitoneum. Normal urinary bladder. There is no pelvic mass lesion or lymphadenopathy. There is no pelvic fluid. Normal abdominal wall. CT/Abdomen/Pelvis W IV Cont ONLY IMPRESSION: 1. Prior cholecystectomy. 2. Mild multifocal thickening of the colon, more prominent in the hepatic flexu re, probably colitis. 3. Diffuse colonic diverticulosis without associated acute diverticulitis. 4. Diffuse thickening of the stomach, probably gastritis. 5. Mild diffuse spondylosis. Reading Location[facility] [address]
[2024-09-07 02:11] VITALS: BP 114/76; PULSE 81; RESP 16; TEMP 36.9; O2SAT 97
[2024-09-07] MEDS: metroNIDAZOLE 500 MG Tablet PO (02:14)
[2024-09-07] MEDS: cefuroxime axetiL 250 MG TABLET 500 MG PO (02:38)
[2024-09-09 13:08] LABS: Lyme IGG CIA Positive (Negative); Lyme IGM CIA Positive (Negative); Lyme Scn Total Ab w/Rflx Positive (Negative)
== END 2024-09-07 02:45 | disposition home or self-care (01) ==
PROVIDERS: Emergency Provider Emergency Medicine; PCP Family Medicine; Visit Provider Emergency Medicine
DX: K52.9 Noninfective gastroenteritis and colitis, unspecified (principal); E78.00 Pure hypercholesterolemia, unspecified; A69.20 Lyme disease, unspecified; Z79.899 Other long term (current) drug therapy
CPT/HCPCS: 71046; 74177; 80048; 80076; 81001; 83690; 84443; 85025; 85652; 86140; 86308; 86618; 87040; 87651; 99284; Q9967; A4216

== ENCOUNTER → 2024-09-08 | Outpatient (CLI) | payer MEDICARE, OTHER, SELFPAY ==
[2024-09-08 18:05] LABS: Absolute Lymphocyte Count 0.81 X10^3/uL (0.83-4.51); Absolute Neutrophil Count 2.8 X10^3/uL (2.0-7.7); Basophil# 0.02 X10^3/uL; Basophil% 0.5 % (0-1); Eosinophil# 0.14 X10^3/uL; Eosinophils% 3.5 % (0-5); Hematocrit 35.5 % (40-54); Hemoglobin 11.7 g/dL (13.0-16.5); Lymphocyte # 0.81 X10^3/ul (0.83-4.51); Mean Corpuscular Hgb 30.7 pg (27.0-32.0); Mean Corpuscular Volume 93.2 fL (80-94); Mean Platelet Vol. 10.2 fl (6.2-12.0); Monocyte# 0.22 X10^3/uL; Monocyte% 5.4 % (0-10); NRBC Flagged by Analyzer 0 % (0-5); Neutrophil # 2.82 X10^3/uL (2.7-7.7); Neutrophil % 69.9 % (47-70); Platelet Count 205 K/mm3 (150-450); RBC Distribution Width CV 13.4 % (11.6-14.6); RBC Distribution Width SD 46.3 fl (35.1-43.9); Red Blood Count 3.81 M/mm3 (4.6-6.2)
[2024-09-08 18:47] LABS: ALB/GLOB Ratio 1.1 RATIO (0.9-2.4); AST(SGOT) 69 U/L (<=37); Alanine Aminotransfer ALT/SGPT 117 U/L (<=46); Albumin, Serum 3.5 g/dL (3.4-4.8); Alkaline Phosphatase 250 U/L (40-129); Anion Gap 11 (5-15); BUN 14 mg/dL (4-19); BUN/Creat Ratio 12.6 RATIO (10-20); Carbon Dioxide 24.7 mmol/L (21.0-32.0); Chloride 103 mmol/L (98-108); Creatinine, Serum 1.13 mg/dL (0.70-1.20); EST Glomerular Filtration Rate 69 (>60); Globulin 3.2 g/dL (2.2-4.2); Glucose 150 mg/dL (70-99); Potassium 3.8 mmol/L (3.3-5.1); Protein, Total 6.6 g/dL (5.9-8.4); Sodium Level 139 mmol/L (133-145); Total Bilirubin 0.35 mg/dL (0.00-1.30)
== END | disposition home or self-care (01) ==
LOC: MFPLAB 14:44
PROVIDERS: PCP Family Medicine; Referring Provider Family Medicine; Visit Provider Family Medicine
DX: R10.9 Unspecified abdominal pain (principal)
CPT/HCPCS: 36415; 80053; 85025

== ENCOUNTER → 2024-10-09 | Outpatient (CLI) | payer MEDICARE, OTHER, SELFPAY ==
--- NOTE | 2024-10-09 16:20 | RAD_ITS ---
PROCEDURE: ABD INC DECUB AND/OR ERECT 10/09/2024 REASON FOR EXAM: RECENT COLITIS, ? CONSTIPATION TECHNIQUE: Single view abdomen. COMPARISON: CT scan on 09/07/2024. FINDINGS: Mild amount of fecal residue in the large bowels. Normal visualized lung bases. There is an unremarkable bowel gas pattern. There is no demonstrated free abdominal air. Normal visualized liver. Normal visualized spleen. Normal visualized kidneys. The soft tissue structures of the pelvis are unremarkable. Mild diffuse spondylosis. RAD/Abd Inc Decub and/or Erect IMPRESSION: Unremarkable bowel gas pattern. Mild amount of fecal residue in the large bowels. Reading Location: [facility]
[2024-10-09 18:35] LABS: Vitamin D,25 Hydroxy 74.1 ng/mL (30-100)
[2024-10-09 18:37] LABS: Absolute Lymphocyte Count 1.38 X10^3/uL (0.83-4.51); Absolute Neutrophil Count 2.5 X10^3/uL (2.0-7.7); Basophil# 0.04 X10^3/uL; Basophil% 0.9 % (0-1); Eosinophil# 0.15 X10^3/uL; Eosinophils% 3.4 % (0-5); Hematocrit 39.9 % (40-54); Hemoglobin 13.8 g/dL (13.0-16.5); Lymphocyte # 1.38 X10^3/ul (0.83-4.51); Mean Corp Hgb Conc 34.6 g/dL (32-36); Mean Corpuscular Hgb 32.1 pg (27.0-32.0); Mean Corpuscular Volume 92.8 fL (80-94); Mean Platelet Vol. 11.4 fl (6.2-12.0); Monocyte# 0.32 X10^3/uL; Monocyte% 7.2 % (0-10); NRBC Flagged by Analyzer 0 % (0-5); Neutrophil # 2.54 X10^3/uL (2.7-7.7); Neutrophil % 57.1 % (47-70); Platelet Count 167 K/mm3 (150-450); RBC Distribution Width CV 13.9 % (11.6-14.6); RBC Distribution Width SD 47.1 fl (35.1-43.9); White Blood Count 4.5 K/mm3 (4.4-11.0)
[2024-10-09 18:51] LABS: ALB/GLOB Ratio 1.5 RATIO (0.9-2.4); AST(SGOT) 45 U/L (<=37); Alanine Aminotransfer ALT/SGPT 47 U/L (<=46); Albumin, Serum 4.1 g/dL (3.4-4.8); Alkaline Phosphatase 84 U/L (40-129); Anion Gap 12 (5-15); BUN 14 mg/dL (4-19); BUN/Creat Ratio 13.8 RATIO (10-20); Calcium,Total 9.2 mg/dL (7.6-11.0); Carbon Dioxide 23.4 mmol/L (21.0-32.0); Chloride 106 mmol/L (98-108); Creatinine, Serum 0.99 mg/dL (0.70-1.20); EST Glomerular Filtration Rate 80 (>60); Globulin 2.7 g/dL (2.2-4.2); Glucose 100 mg/dL (70-99); Potassium 4.1 mmol/L (3.3-5.1); Protein, Total 6.8 g/dL (5.9-8.4); Sodium Level 141 mmol/L (133-145)
[2024-10-09 18:53] LABS: CRP < 3.00 mg/L (0.0-3.0)
[2024-10-09 21:16] LABS: Erythrocyte Sedimentation Rate 9 mm/hr (0-20)
== END | disposition home or self-care (01) ==
LOC: MTLAB 16:19
PROVIDERS: PCP Family Medicine; Referring Provider Family Medicine; Visit Provider Family Medicine
DX: E55.9 Vitamin D deficiency, unspecified (principal); K52.9 Noninfective gastroenteritis and colitis, unspecified; R10.9 Unspecified abdominal pain
CPT/HCPCS: 36415; 74019; 80053; 82306; 85025; 85652; 86140; 87086